=== PATIENT | female | born 1960 ===

== ENCOUNTER 2021-08-16 06:35 | Day surgery (SDC) | payer OTHER ==
[~2021-08-16 06:35] MED LIST: XANA PO; ZOLOFT PO; [UNRECOGNIZED DRUG - OTHER] PO
== END 2021-08-16 14:20 | disposition home or self-care (01) ==
LOC: CIR.AMB 06:35
PROVIDERS: ATTEND Orthopaedic Surgery Hand Surgery
DX: G56.02 Carpal tunnel syndrome, left upper limb (principal); Z20.822 Contact with and (suspected) exposure to COVID-19; H81.03 Meniere's disease, bilateral; E66.9 Obesity, unspecified; H91.8X9 Other specified hearing loss, unspecified ear